=== PATIENT | male | born 1980 | race Caucasian/White ===

== ENCOUNTER 2022-10-29 07:25 | Day surgery (SDC) | payer BC ==
[~2022-10-29 07:25] MED LIST: Lactated Ringers 1,000 ML IV SCH
[2022-10-29] MEDS ORDERED: propofoL 50 ML ONE (07:36)
[2022-10-29] MEDS ORDERED: Propofol 200 MG/20 ML SDV ONE (08:18)
== END 2022-10-29 09:09 | disposition home or self-care (01) ==
LOC: MW.SDS 07:25
PROVIDERS: ATTEND Surgery
DX: Z12.11 Encounter for screening for malignant neoplasm of colon (principal); K63.89 Other specified diseases of intestine; K63.5 Polyp of colon; Q43.8 Other specified congenital malformations of intestine; Z80.0 Family history of malignant neoplasm of digestive organs; E78.00 Pure hypercholesterolemia, unspecified; Z79.82 Long term (current) use of aspirin; Z79.899 Other long term (current) drug therapy
CPT/HCPCS: 45380; J2704; J7120; 00811